=== PATIENT | male | born 1940 | race Caucasian/White ===

== ENCOUNTER 2018-08-10 21:24 | Inpatient (IN) | payer MEDICARE, OTHER ==
[~2018-08-10] VITALS: Ht 170.2 cm; Wt 104.4 kg
[2018-08-10] MEDS ORDERED: SODIUM CHLORIDE 0.9% 1000ML 1,000 ML IV STA (22:05)
[2018-08-10] MEDS ORDERED: ACETAMINOPHEN 325 MG TAB PO ONE (22:15)
[2018-08-10 22:24] LABS: BASOPHILS % 0.3 % (0.0-1.0); EOSINOPHILS # (AUTO) 0.2 (0.0-0.4); HEMATOCRIT 38.3 % (38.2-49.6); HEMOGLOBIN 12.6 g/dL (14.0-18.0); LYMPHOCYTES # (AUTO) 0.9 (1.0-3.2); LYMPHOCYTES % 5.8 % (18.0-39.1); MEAN CORPUSCULAR HEMOGLOBIN 30.5 pg (28-32); MEAN CORPUSCULAR HGB CONC 32.9 g/dL (31-35); MEAN CORPUSCULAR VOLUME 92.7 fL (81-99); MONOCYTES # (AUTO) 0.8 (0.2-0.8); MONOCYTES % 4.9 % (4.4-11.3); NEUTROPHILS # (AUTO) 13.6 (2.1-6.9); NEUTROPHILS % 87.6 % (38.7-80.0); PLATELET COUNT 185 x10e3/uL (140-360); RED BLOOD COUNT 4.13 x10e6/uL (4.3-5.7)
--- NOTE | 2018-08-10 22:28 | Diagnostic Imaging Report ---
EXAM: CHEST SINGLE (PORTABLE), AP 1 view INDICATION: Fever, weakness, nausea COMPARISON: None FINDINGS: LINES/TUBES: None LUNGS: No consolidations or edema. PLEURA: No effusions or pneumothorax. HEART AND MEDIASTINUM: Normal size and contour. BONES AND SOFT TISSUES: No acute findings. IMPRESSION: No acute thoracic abnormality. Signed by: Dr. Katina Morales M.D. on 08/10/2018 10:24 PM
[2018-08-10 22:43] LABS: ALANINE AMINOTRANSFERASE 17 IU/L (0-55); ALBUMIN 3.5 g/dL (3.5-5.0); ALBUMIN/GLOBULIN RATIO 0.9 (0.8-2.0); ALKALINE PHOSPHATASE 54 IU/L (40-150); ANION GAP 16.3 mmol/L (8-16); BLOOD UREA NITROGEN 15 mg/dL (7-26); BUN/CREATININE RATIO 17 (6-25); CALCIUM 9.7 mg/dL (8.4-10.2); CARBON DIOXIDE 24 mmol/L (22-29); CHLORIDE 100 mmol/L (98-107); CREATINE KINASE 74 IU/L (30-200); CREATININE, SERUM 0.89 mg/dL (0.72-1.25); EST GLOMERULAR FILTRATION RATE > 60 ML/MIN (60-); GLUCOSE 113 mg/dL (74-118); POTASSIUM 4.3 mmol/L (3.5-5.1); SODIUM 136 mmol/L (136-145)
[2018-08-10] MEDS ORDERED: LEVOFLOXACIN 500 MG TAB PO ONE (23:30)
[2018-08-11] VITALS (8 sets, daily range): BP systolic 112–137; BP diastolic 55–61
[2018-08-11 00:19] LABS: BILIRUBIN,URINE NEGATIVE (NEGATIVE); CLARITY,URINE CLEAR (CLEAR); COLOR,URINE YELLOW (YELLOW); KETONES,URINE NEGATIVE (NEGATIVE); LEUKOCYTE ESTERASE ,URINE NEGATIVE (NEGATIVE); NITRITE,URINE NEGATIVE (NEGATIVE); PROTEIN,URINE DIPSTICK NEGATIVE (NEGATIVE); URINE UROBILINOGEN 0.2 mg/dL (0.2 - 1)
--- NOTE | 2018-08-11 00:19 | Diagnostic Imaging Report ---
EXAM: CT CHEST WO INDICATION: Fever, cough, shortness of breath COMPARISON: None TECHNIQUE: Multidetector CT scanning of the chest was performed. Coronal and sagittal multiplanar reformations were obtained. Dose modulation, iterative reconstruction, and/or weight based adjustment of the mA/kV was utilized to reduce the radiation dose to as low as reasonably achievable. Routine protocol performed. IV Contrast: None CTDIvol has been reviewed. It is below the limits set by the Radiation Protocol Committee (RPC). FINDINGS: LUNGS AND AIRWAYS: The trachea and major bronchi are unremarkable. No consolidations or edema. Mild bibasilar atelectasis. There are 2 nonspecific 4 mm nodules left lung base. No follow-up indicated in low risk patient. PLEURA: No effusions or pneumothorax. HEART, MEDIASTINUM, VESSELS: The heart is within normal size limits. No abnormal pericardial effusion. Coronary artery calcifications. Atherosclerotic changes of the thoracic aorta without aneurysm. No mediastinal mass or lymphadenopathy. Right thyroid lobe 0.9 cm nodule. No follow-up indicated. UPPER ABDOMEN: Unremarkable MUSCULOSKELETAL: No acute findings. IMPRESSION: No evidence of pneumonia. Signed by: Dr. Katina Morales M.D. on 08/11/2018 12:16 AM
[2018-08-11 00:27] LABS: BACTERIA,URINE RARE /HPF; EPITHELIAL CELLS,URINE RARE /LPF; MUCUS,URINE RARE (RARE); RBC,URINE 0-5 /HPF (0-5); WBC,URINE (MAN) 0-5 /HPF (0-5)
[2018-08-11] MEDS: CEFTRIAXONE SOD 1 GM VIAL IV SCH ×2 (00:43→23:10)
[2018-08-11] MEDS ORDERED: RAMIPRIL10 MG PO (01:10)
[2018-08-11] MEDS ORDERED: METOPROLOL SUCC25 MG PO (01:10)
[2018-08-11] MEDS ORDERED: TAMSULOSIN HCL0.4 MG PO (01:10)
[2018-08-11] MEDS ORDERED: ATORVASTATIN CA10 MG PO (01:10)
[2018-08-11] MEDS ORDERED: TORSEMIDE20 MG PO (01:10)
[2018-08-11] MEDS ORDERED: CLOPIDOGREL75 MG PO (01:10)
[2018-08-11] MEDS ORDERED: CEFTRIAXONE SOD 1 GM VIAL IV SCH (02:15)
[2018-08-11] MEDS: LEVOFLOXACIN 750MG/DEXTROSE PREMIX BAG 150ML IV SCH (02:15)
--- OUTSIDE RECORDS SUMMARY | 2018-08-11 02:26 | XMS REPORT ---
Author Author [facility] Address Unknown Phone Unavailable Care Team Providers Care [employer] Professor Name Role Phone Christi SILVEIRA Unavailable Unavailable Problems This patient has no known problems. Allergies, Adverse Reactions, Alerts This patient has no known allergies or adverse reactions. Medications This patient has no known medications. Results Test Description Test Time Test Comments Text Results Atomic Results Result Comments CT CHEST WO 2018-08-11 00:09:00 [place] [address] Patient Name: DEEPAK ESPITIA MR #: [id number] : 1940 Age/Sex: 78/M Req #: [id number] Adm Physician: Ordered by: DARIUS SILVEIRA MD Report #: [id number] Location: ER Room/Bed: Procedure: [id number] CT/CT CHEST WO Exam Date: 08/10/18 Exam Time: 2353 REPORT STATUS: Signed EXAM: CT CHEST WO INDICATION: Fever, cough, shortness of b reath COMPARISON: None TECHNIQUE: Multidetector CT scanning of the chest was performed. Coronal and sagittal multiplanar reformations were obtained. Dose modulation, iterative reconstruction, and/or weight based adjustment of the mA/kV was utilized to reduce the radiation dose to as low as reasonably achievable. Routine protocol performed. IV Contrast: None CTDIvol has been reviewed. It is below the limits set by the Radiation Protocol Committee (RPC). FINDINGS: LUNGS AND AIRWAYS: The trachea and major bronchi are unremarkable. No consolidations or edema. Mild bibasilar atelectasis. There are 2 nonspecific 4 mm nodules left lung base. No follow-up indicated in low risk patient. PLEURA: No effusions or pneumothorax. HEART, MEDIASTINUM, VESSELS: The heart is within normal size limits. No abnormal pericardial effusion. Coronary artery calcifications. Atherosclerotic changes of the thoracic aorta without aneurysm. No mediastinal mass or lymphadenopathy. Right thyroid lobe 0.9 cm nodule. No follow-up indicated. UPPER ABDOMEN: Unremarkable MUSCULOSKELETAL: No acute findings. IMPRESSION: No evidence of pneumonia. Signed by: Dr. Laila Martin M.D. on 08/11/2018 12:16 AM Dictated By: LAILA MARTIN MD Transcribed By: SANAZ on 08/11/1815 COPY TO: DARIUS SILVEIRA MD CHEST SINGLE (PORTABLE) 2018-08-10 22:24:00 [place] [address] Patient Name: DEEPAK ESPITIA MR #: [id number] : 1940 Age/Sex: 78/M Req #: [id number] Adm Physician: Ordered by: DARIUS SILVEIRA MD Report #: [id number] Location: ER Room/Bed: Procedure: [id number] DX/CHEST SINGLE (PORTABLE) Exam Date: Exam Time: REPORT STATUS: Signed EXAM: CHEST SINGLE (PORTABLE), AP 1 view INDICATION: Fever, weakness, nausea COMPARISON: None FINDINGS: LINES/TUBES: None LUNGS: No consolidations or edema. PLEURA: No effusions or pneumothorax. HEART AND MEDIASTINUM: Normal size and contour. BONES AND SOFT TISSUES: No acute findings. IMPRESSION: No acute thoracic abnormality. Signed by: Dr. Laila Martin M.D. on 08/10/2018 10:24 PM Dictated By: LAILA MARTIN MD 23 Transcribed By: SANAZ on 08/10/182223 COPY TO: DARIUS SILVEIRA MD
[2018-08-11] MEDS: SODIUM CHLORIDE 0.9% 1000ML 1,000 ML IV SCH ×2 (03:16→11:14)
[2018-08-11] MEDS ORDERED: IPRATROPIUM BROMIDE 0.02% 2.5 ML NEB NEB SCH (07:00)
[2018-08-11] MEDS: ACETAMINOPHEN 325 MG TAB PO PRN ×2 (07:44→19:30)
[2018-08-11] MEDS: ALBUTEROL SULF 0.083% NEB SOLN 3 ML NEB NEB SCH ×3 (08:00→20:30)
[2018-08-11 08:10] LABS: CREATINE KINASE MB 0.4 ng/mL (0-5.0)
[2018-08-11] MEDS: METOPROLOL SUCCINATE 25 MG TAB XL PO SCH (09:27)
[2018-08-11] MEDS: CLOPIDOGREL BISULFATE 75 MG TAB PO SCH (09:27)
--- NOTE | 2018-08-11 10:23 | Diagnostic Imaging Report ---
Exam: Head CT without contrast History: Fever, hypoxia, confusion Comparison studies: None Technique: Axial images were obtained from the skull base to the vertex. Coronal and sagittal images reconstructed from the axial data. Dose modulation, iterative reconstruction, and/or weight based adjustment of the mA/kV was utilized to reduce the radiation dose to as low as reasonably achievable. Radiation dose: Total DLP: 832 mGy*cm. Estimated effective dose: DLP x 0.015 Intravenous contrast: None Findings: Scalp: No abnormalities. Bones: No fractures, blastic or lytic lesions. Brain sulci: Moderately prominent. Ventricles: Mild compensatory dilatation. No hydrocephalus. Extra-axial spaces: No masses, no fluid collection. Parenchyma: No mass, acute hemorrhage or acute or chronic cortical vascular insults. A few hypodensities in the supratentorial white matter are nonspecific but most compatible with chronic microvascular ischemic changes. Sellar/suprasellar region: No abnormalities. Craniocervical junction: Patent foramen magnum. No Chiari one malformation. Incidental findings: Atherosclerotic calcifications in the carotid siphons. Bilateral intraocular lens replacement related to previous cataract surgery. IMPRESSION: No acute intracranial abnormalities. Chronic findings: 1. Moderate generalized cerebral volume loss. 2. Mild supratentorial microvascular ischemic changes. Signed by: Dr. Galo Desai M.D. on 08/11/2018 10:20 AM
[2018-08-11 16:28] LABS: CREATINE KINASE MB 0.6 ng/mL (0-5.0)
--- NOTE | 2018-08-11 17:48 | Diagnostic Imaging Report ---
EXAMINATION: CT of the abdomen and pelvis with contrast. TECHNIQUE: Spiral CT images of the abdomen and pelvis were performed from the lung bases to the lesser trochanters after the intravenous administration of 100 cc of Isovue 370 and the oral administration of water. Coronal and sagittal reformatted images were obtained. COMPARISON: None. CLINICAL HISTORY:Fever with hypoxia DISCUSSION: ABDOMEN/PELVIS: LOWER THORAX:Minimal atelectatic changes in bilateral lower lobes. Please refer to CT chest performed yesterday for further detail. HEPATOBILIARY: 4 mm calcified granuloma in hepatic segment VII (was 2, image 12). No other focal lesions. No intra or extrahepatic biliary ductal dilation. GALLBLADDER: No radio-opaque stones or sludge. No wall thickening. SPLEEN: No splenomegaly. PANCREAS: No focal masses or ductal dilatation. ADRENALS: No adrenal nodules. KIDNEYS/URETERS: No hydronephrosis, stones, or solid mass lesions. 2.1 cm with density simple cyst in the right interpolar region (series 2, image 34). 2.3 cm partially exophytic fluid density simple cyst in the right inferior pole (series 2, image 40). PELVIC ORGANS/BLADDER: Bladder is unremarkable. Dystrophic calcifications in the prostate. Seminal vesicles are unremarkable. PERITONEUM/RETROPERITONEUM: No free air or fluid. 1.1 cm calcified density posterior to the bladder may represent a calcified epiploic appendage from the sigmoid. LYMPH NODES: No intra-abdominal, retroperitoneal, pelvic or inguinal lymphadenopathy. VESSELS: The celiac trunk,superior and inferior mesenteric and bilateral renal arteries are patent The portal, superior mesenteric and splenic veins are patent. Atherosclerotic calcification of the abdominal aorta, aortic branches and iliac vessels. GI TRACT: No bowel dilation or evidence of obstruction. No pericolonic inflammatory changes. Stomach is unremarkable. BONES AND SOFT TISSUE: No aggressive lytic lesions. Degenerative disc changes in the lower thoracic and lumbosacral spine. 3.5 x 3.3 x 3.2 cm fat-containing umbilical hernia IMPRESSION: 1. No acute abdominopelvic abnormalities. No free fluid, masses or fluid collections. Bowel is unremarkable. Signed by: Dr. Samir Gan M.D. on 08/11/2018 5:45 PM
--- NOTE | 2018-08-11 18:36 | Consultation ---
DATE OF CONSULTATION: August 11, 2018 REASON FOR CONSULTATION: Fever. Thank you for asking me to see this patient. HISTORY OF PRESENT ILLNESS: The patient is a very pleasant 78-year-old gentleman who has history of heart disease, history of obesity, according to his , he has been sick on and off, dizzy, may be forgetful for last month or so, but yesterday while he is sitting, he has really fever. While he was sitting, he became almost noncommunicative and fell to the side. He went to the emergency room. In the emergency room, he had a fever of 105. The patient was admitted and started on antibiotic. He is currently alert and oriented. The patient himself was lying in bed. He denies any complaints whatsoever. He states he is back to his baseline. REVIEW OF SYSTEMS HEENT: Negative. PULMONARY: Negative. CARDIAC: Negative. : Negative. SKIN: There is no rash. He denies any headache, nausea, vomiting, diarrhea, urgency, frequency, or skin rash. He is otherwise feeling really good according to him. 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 LABORATORY DATA: Reviewed. Blood cultures and urine cultures are pending. White count 15.48, hemoglobin 12.6. Sodium 136, potassium 4.3, creatinine 0.89, calcium of 9.7. Brain CT; no acute findings. There is moderate generalized cerebral volume loss, mild microvascular ischemic changes. Chest CT; no evidence of pneumonia. PHYSICAL EXAMINATION GENERAL: Currently alert and oriented, does not seem to be in acute distress. VITALS: Stable, currently afebrile. HEENT: Not icteric. NECK: Supple. CHEST: Clear. COR: S1. ABDOMEN: Soft. Bowel sounds are present. No tenderness. Could not appreciate hepatosplenomegaly. IMPRESSION 1. Fever. 2. confusion, totally resolved by now. PLAN 1. Agree with blood cultures. 2. Agree with urine cultures. 3. Chest x-ray is negative. 4. We will order CT abdomen and pelvis. 5. Patient probably have underlying mild dementia. Consider neuro evaluation. 6. We will follow with you. Job#: [id number] JO ANN
--- NOTE | 2018-08-11 20:31 | Consultation ---
DATE OF CONSULTATION: August 11, 2018 NEUROLOGY CONSULT NOTE HISTORY OF PRESENT ILLNESS: Mr. Hadry is a 78-year-old fncqr-eyyr-lksbpxdo man with past medical history significant for hypertension, hyperlipidemia, coronary artery disease, and obstructive sleep apnea, admitted to [facility] on August 11, 2018 with confusion and fever. On the day prior to admission, the patient was noted by his to be confused. More specifically, Mr. Hardy was poorly responsive. When he would respond, his responses were mumbled. To his knowledge, the patient was not disoriented to person or place. Though she did not question him specifically, she does believe he was disoriented to time and situation. Neither Mr. Hardy nor his endorses shortness of breath, wheezing, or productive cough. The patient does report nausea. However, he does not endorse abdominal pain, vomiting, or diarrhea. Mr. Hardy has not experienced any recent headaches. Though he does occasionally have neck pain, he has not experienced neck pain or stiffness recently. He does endorse mild photophobia, but this is reportedly chronic. Recently, Mr. Hardy's has noticed some confusion at baseline. As an example, the reports the patient recently asked his date of . 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 Mr. Hardy was brought to the emergency center at [facility] via ambulance on the evening of August 10, 2018 for further evaluation of the symptoms described above. Upon arrival in the emergency center, the patient had a temperature of 102.2 degrees Fahrenheit. According to the patient's , his temperature was 105 degrees Fahrenheit at home. Upon arrival in the emergency center, the patient's blood pressure is 156/86 mmHg with a pulse of 111 beats per minute. The patient's neurological examination was significant for mildly altered mental status with disorientation to time. Otherwise, the neurological examination was nonfocal. Routine laboratory data revealed an elevated white blood cell count of 15.48 with a left shift. A urinalysis was unremarkable. Influenza types A and B antigen were negative. A chest x-ray did not reveal evidence of pneumonia. A CT of the brain without contrast was performed, but did not show evidence of recent large territorial ischemia or hemorrhage. Mr. Hardy was admitted to [facility] for further evaluation and treatment of his symptoms. REVIEW OF SYSTEMS: Fever, chills, nausea, confusion, right shoulder and arm pain, myalgias, mild photophobia (chronic). PAST MEDICAL HISTORY: Hypertension, hyperlipidemia, coronary artery disease, obstructive sleep apnea, prior history of head trauma (previously hospitalized with concussions), diverticulitis, appendicitis. PAST SURGICAL HISTORY: Cardiac stents, right foot surgery, right wrist surgery, appendectomy, bilateral cataract removal, removal of a cyst along the lumbosacral spine, tonsillectomy. PAST HOSPITALIZATIONS: Surgeries/procedures, status post fall x2, diverticulitis. FAMILY MEDICAL HISTORY: The patient's paternal and maternal grandparents are . Their medical histories are unknown. The patient's father is from a stroke. He had coronary artery disease as well. The patient's mother is from a motor vehicle accident. Mr. Hardy had 2 sisters and 2 brothers. Both sisters are , 1 from cancer and the other from postoperative complications following aortic aneurysm repair. Both brothers are alive. One brother has diabetes mellitus and end-stage renal disease, on hemodialysis. The other brother has obstructive sleep apnea and hypoglycemia. Mr. Hardy does not have any biological children. SOCIAL HISTORY: The patient is . 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 The patient does report a prior history of tobacco use, but quit smoking (a long time ago). There is no reported current or prior alcohol or recreational drug use. HOME MEDICATIONS: Atorvastatin 10 mg by mouth at bedtime daily, clopidogrel 75 mg by mouth daily, metoprolol succinate ER 25 mg by mouth daily, ramipril 10 mg by mouth at bedtime daily, tamsulosin 0.4 mg by mouth at bedtime daily, torsemide 10 mg by mouth daily. ALLERGIES: NO KNOWN DRUG ALLERGIES. NO KNOWN FOOD ALLERGIES. NO KNOWN ALLERGIES TO LATEX. NO KNOWN ALLERGIES TO IODINE OR OTHER CONTRAST MATERIALS. PHYSICAL EXAMINATION: VITAL SIGNS: Height 67 inches, weight 142 pounds, BMI 22.2 kg/sq m. Blood pressure 124/57 mmHg, pulse 78 beats per minute, respiratory rate 18 breaths per minute, oxygen saturation 98% on 3 liters by nasal cannula. GENERAL: The patient is awake and alert, does not appear distressed. HEENT: Normocephalic, atraumatic. Pupils are equal, round, and reactive to light. Moist mucous membranes. NECK: Supple. No appreciable thyromegaly. No appreciable carotid bruits. CARDIOVASCULAR: S1, S2, regular rate and rhythm. No murmurs, rubs, or gallops. RESPIRATORY: Clear to auscultation bilaterally. No wheezes, rhonchi, or rales. EXTREMITIES: The skin is warm and dry. No clubbing or cyanosis. Pitting edema is present, 1+ over the left foreleg and 2+ over the right foreleg. The posterior tibial and dorsalis pedis pulses are 1+ and symmetric. SKIN: The skin is erythematous and warm to the touch over the right foot and foreleg. NEUROLOGIC EXAMINATION: MEMORY/ATTENTION: The patient is awake and alert, oriented to person, place (hospital, city, county, state), time (date, not day of the week, month, season, year), and minimally to situation. Mr. Hardy answers all general knowledge questions with ease. CRANIAL NERVES: Cranial nerve I - not tested. Cranial nerves II, III, IV, and - Pupils are equal and round, reacts briskly to light (from 3 mm to 2 mm). Extraocular movements intact. No nystagmus. Cranial nerve V - Sensation to light touch and pinprick is intact in the bilateral V1 through V3 distributions. Strength of the temporalis and masseter muscles is within normal limits. Cranial nerve VII - The face is symmetric as are all facial movements. Strength is within normal limits. Cranial nerve VIII - Hearing is intact to finger rub bilaterally. Cranial nerve IX, X - The soft palate elevates equally and symmetrically. Cranial nerve XI - Normal strength of the bilateral sternocleidomastoid and trapezius muscles. Cranial nerve XII - The tongue protrudes midline and moves symmetrically from side to side. STRENGTH: Bulk is normal. Strength is 5/5 in the bilateral deltoids, biceps, triceps, wrist flexors and extensors, finger flexors and extensors, intrinsic hand muscles, hip flexors, knee flexors and extensors, ankle dorsiflexion and plantarflexion, and intrinsic foot muscles. Tone is normal. DTRs: Deep tendon reflexes are 2+ and symmetric at the triceps, biceps, brachioradialis, and patellas. Deep tendon reflexes are trace and symmetric at the Achilles. Plantar responses are flexor bilaterally. SENSATION: Sensation is intact to light touch and pinprick in both arms and both legs. CEREBELLAR: Nmtkbm-kaon-egrjee and heel-mcbride movements are intact without dysmetria or other impairment. GAIT: Deferred. SPEECH: Spontaneous speech is normal without appreciable dysarthria or aphasia. Repetition is intact. INVOLUNTARY MOVEMENTS: None. PRONATOR DRIFT: None. LABORATORY DATA: A comprehensive metabolic panel is significant for a mildly elevated anion gap of 16.3 as well as a mildly elevated globulin of 4.1. Cardiac enzymes are negative x3. TSH 1.196. The CBC with differential and platelets reveals a white blood cell count of 15.48 with 87.6% neutrophils, 5.8% lymphocytes, 4.9% monocytes, 1.0% eosinophils, and 0.3% basophils. A urinalysis was unremarkable. Influenza types A and B antigen negative. Blood and urine cultures were collected on August 10, 2018. Results are pending. DIAGNOSTIC STUDIES: 1. Electrocardiogram, August 10, 2018: Sinus tachycardia at 116 beats per minute. 2. Chest x-ray, August 10, 2018: No acute thoracic abnormality. 3. Chest CT, August 10, 2018: No evidence of pneumonia. 4. CT of the brain without contrast, August 11, 2018: On my review, there is no evidence of recent large territorial ischemia, hemorrhage, mass, or mass effect. There is diffuse cerebral atrophy, more than expected for the patient's age with mild compensatory dilatation of the ventricles. There are findings compatible with mild chronic small-vessel ischemic disease. ASSESSMENT AND PLAN: Mr. Hardy is a 78-year-old odgio-mnbb-csclodle man with past medical history as detailed, admitted to [facility] on August 11, 2018 with encephalopathy and fever, probably secondary to an underlying infection (cellulitis?). At present, the patient's neurological examination is nonfocal. His general physical examination is significant for edema, erythema, and increased temperature over the right foot and foreleg. The patient's laboratory data and other diagnostic studies have been reviewed and are documented above. At present, the source of the patient's fever and elevated white blood cell count is unknown. A CT of the abdomen and pelvis was performed and the results are pending. There are findings suspicious for cellulitis over the patient's right foot and foreleg. This may be the source of infection. Based on the rapid improvement of the patient's encephalopathy as well as absent meningeal signs on neurological examination, the possibility of meningitis is thought to be very low. RECOMMENDATIONS: As follows: 1. Additional laboratory data will be ordered to exclude other causes of confusion. These will include: An ammonia level, a vitamin B1 level, a vitamin B12 level, and rapid plasma reagin. Blood and urine cultures were collected on August 10, 2018, and results are pending. 2. There has been some concern amongst the patient's physicians that Mr. Hardy may have dementia, especially given the findings of the CT of the brain without contrast. The presence of a memory disorder would be best assessed as an outpatient due to the patient being admitted to the hospital with acute confusion in the setting of a febrile illness. 3. Follow up the results of the pending studies. In the interim, continue treatment with intravenous antibiotics as presently prescribed. 4. Defer treatment of the remaining comorbidities to the primary and other services following the patient. Thank you for this consultation. I will continue to follow the patient while he remains in the hospital. TIME SPENT: 70 minutes. Job#: [id number] DR ARNOLD
[2018-08-11] MEDS: TAMSULOSIN HCL 0.4 MG CAP PO SCH (21:24)
[2018-08-11] MEDS ORDERED: IOPAMIDOL 370 MG/ML 200 ML INFUS..BTL INJ ONE (22:27)
[2018-08-12 00:40] VITALS: BP 121/60
[2018-08-12] MEDS: SODIUM CHLORIDE 0.9% 1000ML 1,000 ML IV SCH (00:47)
[2018-08-12] MEDS: ALBUTEROL SULF 0.083% NEB SOLN 3 ML NEB NEB SCH ×4 (01:30→18:40)
[2018-08-12] MEDS: LEVOFLOXACIN 750MG/DEXTROSE PREMIX BAG 150ML IV SCH (02:22)
[2018-08-12 04:30] VITALS: BP 122/58
[2018-08-12 05:12] LABS: BASOPHILS % 0.3 % (0.0-1.0); EOSINOPHILS # (AUTO) 0.1 (0.0-0.4); EOSINOPHILS % 0.7 % (0.0-6.0); HEMATOCRIT 32.9 % (38.2-49.6); HEMOGLOBIN 10.6 g/dL (14.0-18.0); LYMPHOCYTES # (AUTO) 1.1 (1.0-3.2); LYMPHOCYTES % 9.9 % (18.0-39.1); MEAN CORPUSCULAR HEMOGLOBIN 30.7 pg (28-32); MEAN CORPUSCULAR HGB CONC 32.2 g/dL (31-35); MEAN CORPUSCULAR VOLUME 95.4 fL (81-99); MONOCYTES # (AUTO) 0.7 (0.2-0.8); NEUTROPHILS # (AUTO) 8.7 (2.1-6.9); NEUTROPHILS % 81.7 % (38.7-80.0); PLATELET COUNT 137 x10e3/uL (140-360); RED BLOOD COUNT 3.45 x10e6/uL (4.3-5.7); RED CELL DISTRIBUTION WIDTH 13.4 % (11.7-14.4)
[2018-08-12 05:24] LABS: ANION GAP 11.1 mmol/L (8-16); BLOOD UREA NITROGEN 9 mg/dL (7-26); BUN/CREATININE RATIO 12 (6-25); CARBON DIOXIDE 25 mmol/L (22-29); CHLORIDE 108 mmol/L (98-107); CREATININE, SERUM 0.77 mg/dL (0.72-1.25); EST GLOMERULAR FILTRATION RATE > 60 ML/MIN (60-); POTASSIUM 4.1 mmol/L (3.5-5.1); SODIUM 140 mmol/L (136-145)
[2018-08-12] MEDS: LEVOTHYROXINE SODIUM 50 MCG TAB PO SCH (05:25)
--- NOTE | 2018-08-12 05:36 | Diagnostic Imaging Report ---
EXAM: CHEST SINGLE (PORTABLE), AP 1 view INDICATION: Pneumonia COMPARISON: AP view of the chest August 10, 2018 FINDINGS: LINES/TUBES: None LUNGS: No consolidations or edema. PLEURA: No effusions or pneumothorax. HEART AND MEDIASTINUM: Normal size and contour. BONES AND SOFT TISSUES: No acute findings. IMPRESSION: No acute thoracic abnormality. Signed by: Dr. Katina Morales M.D. on 08/12/2018 5:33 AM
[2018-08-12 05:38] LABS: CALCIUM 9.2 mg/dL (8.4-10.2); GLUCOSE 108 mg/dL (74-118)
[2018-08-12 08:00] VITALS: BP 148/63
[2018-08-12] MEDS ORDERED: SODIUM CHLORIDE FLUSH 10 ML SYR INJ PRN (09:30)
[2018-08-12] MEDS: ENOXAPARIN SODIUM INJ 100 MG/ML SYR SC SCH ×2 (09:48→20:22)
[2018-08-12] MEDS: CLOPIDOGREL BISULFATE 75 MG TAB PO SCH (09:48)
[2018-08-12] MEDS: METOPROLOL SUCCINATE 25 MG TAB XL PO SCH (09:49)
[2018-08-12 10:22] VITALS: BP 148/63
[2018-08-12] MEDS: VANCOMYCIN 1GM/NS 250 ML 250 ML IV SCH (12:23)
[2018-08-12 12:24] VITALS: BP 145/70
[2018-08-12 16:00] VITALS: BP 146/73
--- NOTE | 2018-08-12 18:59 | Diagnostic Imaging Report ---
Ventilation/perfusion lung scan Clinical Information: 78 M with fever and hypoxia. Comparison: Chest radiograph 08/12/2018 Discussion: Xenon-133 gas 15.5 mCi was administered via inhalation. Dynamic images of the lungs in the posterior projection were obtained through single breath, equilibrium, and washout phases. Distribution of tracer activity is irregular throughout the lungs. There are no segmental ventilatory defects. Washout of tracer is diffusely delayed with diffuse air trapping. Perfusion images of the lungs were obtained in multiple projections following intravenous administration of approximately 6.6 mCi of Tc-99m MAA. Distribution of tracer is irregular throughout the lungs. The contours of the lungs are well demarcated. There are no segmental perfusion defects of any size. The cardiomediastinal silhouette is unremarkable. Impression: Scan findings represent a VERY LOW probability for acute pulmonary embolic disease based on the PIOPED II criteria. Scan evidence of obstructive lung disease. Signed by: Dr. Holley Olsen M.D. on 08/12/2018 6:56 PM
[2018-08-12] MEDS: TAMSULOSIN HCL 0.4 MG CAP PO SCH (20:22)
[2018-08-12] MEDS: ACETAMINOPHEN 325 MG TAB PO PRN (20:22)
[2018-08-13] VITALS (9 sets, daily range): BP systolic 134–147; BP diastolic 65–79
[2018-08-13] MEDS: CEFTRIAXONE SOD 1 GM VIAL IV SCH ×2 (00:15→23:22)
[2018-08-13] MEDS: ALBUTEROL SULF 0.083% NEB SOLN 3 ML NEB NEB SCH ×5 (00:30→23:50)
[2018-08-13] MEDS: LEVOTHYROXINE SODIUM 50 MCG TAB PO SCH (05:21)
[2018-08-13] MEDS: METOPROLOL SUCCINATE 25 MG TAB XL PO SCH (08:23)
[2018-08-13] MEDS: ENOXAPARIN SODIUM INJ 100 MG/ML SYR SC SCH (08:23)
[2018-08-13] MEDS: CLOPIDOGREL BISULFATE 75 MG TAB PO SCH (08:23)
[2018-08-13] MEDS: VANCOMYCIN 1GM/NS 250 ML 250 ML IV SCH (12:15)
[2018-08-13] MEDS: TAMSULOSIN HCL 0.4 MG CAP PO SCH (20:13)
[2018-08-14 04:00] VITALS: BP 140/69
[2018-08-14] MEDS: LEVOTHYROXINE SODIUM 50 MCG TAB PO SCH (05:02)
[2018-08-14 07:55] VITALS: BP 163/80
[2018-08-14] MEDS: ALBUTEROL SULF 0.083% NEB SOLN 3 ML NEB NEB SCH ×4 (08:25→22:15)
[2018-08-14] MEDS: CLOPIDOGREL BISULFATE 75 MG TAB PO SCH (08:37)
[2018-08-14] MEDS: METOPROLOL SUCCINATE 25 MG TAB XL PO SCH (08:37)
[2018-08-14 12:22] VITALS: BP 136/69
[2018-08-14] MEDS: VANCOMYCIN 1GM/NS 250 ML 250 ML IV SCH (13:00)
[2018-08-14] MEDS ORDERED: SODIUM CHLORIDE 0.9% 250ML 250 ML ONE (13:01)
[2018-08-14] MEDS: HYDROCHLOROTHIAZIDE 25 MG TAB PO SCH (16:30)
[2018-08-14 16:34] VITALS: BP 148/67
[2018-08-14 20:00] VITALS: BP 148/67
[2018-08-14 20:44] VITALS: BP 161/90
[2018-08-14] MEDS: CEFTRIAXONE SOD 1 GM VIAL IV SCH (21:55)
[2018-08-14] MEDS: TAMSULOSIN HCL 0.4 MG CAP PO SCH (21:55)
[2018-08-15 00:38] VITALS: BP 147/78
[2018-08-15 05:40] VITALS: BP 149/89
[2018-08-15] MEDS: ALBUTEROL SULF 0.083% NEB SOLN 3 ML NEB NEB SCH ×2 (07:00→13:00)
[2018-08-15] MEDS: LEVOTHYROXINE SODIUM 50 MCG TAB PO SCH (07:00)
[2018-08-15 08:08] VITALS: BP 152/84
[2018-08-15 08:20] VITALS: BP 152/84
[2018-08-15] MEDS: CLOPIDOGREL BISULFATE 75 MG TAB PO SCH (08:31)
[2018-08-15] MEDS: HYDROCHLOROTHIAZIDE 25 MG TAB PO SCH (08:31)
[2018-08-15] MEDS: METOPROLOL SUCCINATE 25 MG TAB XL PO SCH (08:32)
[2018-08-15 11:31] VITALS: BP 152/89
[2018-08-15] MEDS: VANCOMYCIN 1GM/NS 250 ML 250 ML IV SCH (12:30)
[2018-08-15] MEDS ORDERED: CLINDAMYCIN HC150 MG PO (15:11)
[2018-08-15 15:58] VITALS: BP 137/81
--- NOTE | 2018-08-15 16:11 | Discharge Summary ---
DISCHARGE DIAGNOSES: 1. Right leg cellulitis, improving. 2. Hypertension, controlled. 3. History of coronary artery disease and atherosclerotic heart disease. 4. Suspect dementia. HISTORY OF PRESENT ILLNESS: Mr. Hardy is a 78-year-old gentleman whom I see sporadically at the office, who according to his went to work the day of his admission and in the afternoon had the sudden onset of disorientation, high temperature up to 105, and severe malaise. The patient denied any cough. No headaches. No nausea or vomiting. No diarrhea. No skin lesions. No recent travel. Of note is that when patient was interrogated even the night after the admission he still was unable to provide any account of the recent events that led him to his hospital admission. After admission, he was started on prophylactic IV antibiotics after collecting samples for blood and urine cultures. A CT of the brain was requested, which was significant for atrophy that was greater than expected for his age. Consultations were also requested with Neurology and ID. At the time of presentation in the emergency department, the patient had hypoxemia which was unexplained. This triggered a suspicion for pneumonia, but neither chest x-ray nor a noncontrast CT of the chest confirmed any lung infiltrate. The next day, the patient had evidence of right distal lower extremity edema, erythema and increase warmth, and he underwent a venous Doppler and a V/Q scan which were both negative for any DVT or PE. He was then subsequently treated for cellulitis, and he has steadily improved. He is being discharged home in stable condition. He is to continue clindamycin 300 mg 3 times a day for 7 days. He is to follow up in my office 1 week after discharge. [employer] MD Job#: [id number] EV
== END 2018-08-15 18:16 | disposition home or self-care (01) | DRG 871 ==
LOC: ER 21:24 → ERHOLD 08-11 02:23 → IMCU 08-11 03:37 → OBSVTOIN 08-14 07:49 → MED/SURG2 08-14 10:00
PROVIDERS: ADMIT Internal Medicine; ATTEND Internal Medicine
DX: A41.9 Sepsis, unspecified organism (principal); G92 Toxic encephalopathy; L03.115 Cellulitis of right lower limb; I10 Essential (primary) hypertension; E78.5 Hyperlipidemia, unspecified; I25.10 Atherosclerotic heart disease of native coronary artery without angina pectoris; F03.90 Unspecified dementia, unspecified severity, without behavioral disturbance, psychotic disturbance, mood disturbance, and anxiety; R09.02 Hypoxemia; E66.01 Morbid (severe) obesity due to excess calories; N40.0 Benign prostatic hyperplasia without lower urinary tract symptoms; E03.9 Hypothyroidism, unspecified; I05.8 Other rheumatic mitral valve diseases; G47.33 Obstructive sleep apnea (adult) (pediatric); Z68.36 Body mass index [BMI] 36.0-36.9, adult; Z79.02 Long term (current) use of antithrombotics/antiplatelets; Z87.891 Personal history of nicotine dependence; Z95.5 Presence of coronary angioplasty implant and graft
CPT/HCPCS: 36415; 70450; 71045; 71250; 74177; 78582; 80048; 80053; 80202; 81001; 82140; 82550; 82553; 82607; 82948; 84425; 84443; 84484; 85025; 86592; 87040; 87070; 87086; 87205; 87400; 93005; 93971; 94640; 96360; 99285; A9540; A9558; G0378; J0696; J1650; J3370; J7030; J7050; Q9967